=== PATIENT | female | born 1995 | race African-American/Black ===

== ENCOUNTER 2021-08-14 21:49 | Emergency (ER) | payer OTHER ==
[~2021-08-14] VITALS: Ht 149.9 cm; Wt 52.2 kg
[2021-08-14 23:58] VITALS: BP 113/78; TEMP 97.8
== END 2021-08-15 00:05 | disposition home or self-care (01) ==
LOC: ED 21:49
DX: J02.9 Acute pharyngitis, unspecified (principal); J01.80 Other acute sinusitis
CPT/HCPCS: 87651; 99282

== ENCOUNTER 2021-09-01 07:47 | Emergency (ER) | payer OTHER ==
[~2021-09-01] VITALS: Ht 149.9 cm; Wt 49.9 kg
[2021-09-01 07:50] VITALS: TEMP 99
[2021-09-01 08:55] VITALS: BP 118/59
== END 2021-09-01 08:55 | disposition home or self-care (01) ==
LOC: ED 07:47
DX: B34.9 Viral infection, unspecified (principal)
CPT/HCPCS: 87651; 99282

== ENCOUNTER 2021-10-20 10:36 | Emergency (ER) | payer OTHER ==
[~2021-10-20] VITALS: Ht 149.9 cm; Wt 52.2 kg
[2021-10-20 10:40] VITALS: BP 125/84; TEMP 98.9
[2021-10-20] MEDS ORDERED: AZIT250T3 PO (11:09)
== END 2021-10-20 11:21 | disposition home or self-care (01) ==
LOC: ED 10:36
DX: J02.9 Acute pharyngitis, unspecified (principal)
CPT/HCPCS: 87651; 99282

== ENCOUNTER 2021-12-19 03:35 | Emergency (ER) | payer OTHER ==
[~2021-12-19] VITALS: Ht 149.9 cm; Wt 52.2 kg
[~2021-12-19 03:35] MED LIST: AZIT250T3 PO
[2021-12-19 04:50] VITALS: BP 120/76; TEMP 98.6
== END 2021-12-19 04:50 | disposition home or self-care (01) ==
LOC: ED 03:35
DX: R10.84 Generalized abdominal pain (principal)
CPT/HCPCS: 81002; 81025; 96372; 99283; J1885

== ENCOUNTER 2022-08-28 19:42 | Emergency (ER) | payer OTHER ==
[~2022-08-28] VITALS: Ht 149.9 cm; Wt 54.4 kg
[2022-08-28 22:10] VITALS: BP 114/82; TEMP 97.3
== END 2022-08-28 22:10 | disposition home or self-care (01) ==
LOC: ED 19:42
DX: S60.011A Contusion of right thumb without damage to nail, initial encounter (principal); S60.211A Contusion of right wrist, initial encounter; W19.XXXA Unspecified fall, initial encounter
CPT/HCPCS: 99282